=== PATIENT | male | born 1955 | race Hispanic/Latino ===

== ENCOUNTER 2023-10-22 11:34 | Inpatient (IN) | payer MEDICARE ==
[~2023-10-22] VITALS: Ht 165.1 cm; Wt 68.0 kg
[2023-10-22] VITALS (8 sets, daily range): BP systolic 126–148; BP diastolic 74–92; PULSE 57–72; RESP 11–18; TEMP 98; O2SAT 95–100
[2023-10-22] MEDS: ASPIRIN 325 MG TAB PO ONE (12:14)
[2023-10-22] MEDS ORDERED: ASPIRIN 81 MG CHEW TAB ONE (12:17)
[2023-10-22] MEDS: CLOPIDOGREL BISULFATE 75 MG TAB PO ONE (12:19)
[2023-10-22] MEDS: HEPARIN SOD (PORCINE) 5,000 UNIT/ML VIAL SC ONE (12:21)
[2023-10-22 12:22] LABS: BASOPHILS # (AUTO) 0.1 (0.0-0.1); BASOPHILS % 0.6 % (0.0-1.0); EOSINOPHILS # (AUTO) 0.1 (0.0-0.4); EOSINOPHILS % 0.3 % (0.0-6.0); HEMATOCRIT 49.5 % (38.2-49.6); LYMPHOCYTES # (AUTO) 1.5 (1.0-3.2); LYMPHOCYTES % 9.5 % (18.0-39.1); MEAN CORPUSCULAR HEMOGLOBIN 31.7 pg (28-32); MEAN CORPUSCULAR HGB CONC 32.3 g/dL (31-35); MONOCYTES # (AUTO) 0.8 (0.2-0.8); NEUTROPHILS # (AUTO) 13.1 (2.1-6.9); NEUTROPHILS % 84.2 % (38.7-80.0); PLATELET COUNT 247 x10e3/uL (140-360); RED BLOOD COUNT 5.05 x10e6/uL (4.3-5.7); RED CELL DISTRIBUTION WIDTH 14.4 % (11.7-14.4); WHITE BLOOD COUNT 15.55 x10e3/uL (4.8-10.8)
[2023-10-22] MEDS ORDERED: CLOPIDOGREL BISULFATE 75 MG TAB ONE (12:23)
[2023-10-22] MEDS ORDERED: LIDOCAINE HCL 2% LOCAL 20 ML VIAL ONE (12:24)
[2023-10-22] MEDS ORDERED: HEPARIN SOD (PORCINE) 1000 UNIT/ML 30ML ONE (12:24)
[2023-10-22] MEDS ORDERED: HEPARIN SOD/SOD CHLORIDE 2,000 ML ONE (12:25)
[2023-10-22] MEDS ORDERED: NITROGLYCERIN/D5W 200 MCG/ML 250 ML ONE (12:25)
[2023-10-22] MEDS ORDERED: SODIUM CHLORIDE 0.9% 1000ML 1,000 ML ONE (12:25)
[2023-10-22] MEDS ORDERED: IOPAMIDOL 370 MG/ML 100 ML INFUS..BTL INJ ONE ×2 (12:25→13:21)
[2023-10-22] MEDS ORDERED: SODIUM CHLORIDE 0.9% 1000ML 1,000 ML IV SCH (12:30)
[2023-10-22] MEDS ORDERED: MIDAZOLAM HCL 2 MG/2 ML VIAL ONE ×2 (12:33→12:54)
[2023-10-22] MEDS ORDERED: FENTANYL CITRATE/PF 100MCG/2 ML INJ ONE (12:33)
[2023-10-22 12:50] LABS: ALBUMIN 4.1 g/dL (3.5-5.0); ALBUMIN/GLOBULIN RATIO 1.1 (0.8-2.0); ANION GAP 13.8 mmol/L (8-16); BILIRUBIN,TOTAL 0.3 mg/dL (0.2-1.2); CALCIUM 9.4 mg/dL (8.4-10.2); CREATININE, SERUM 0.89 mg/dL (0.72-1.25); POTASSIUM 3.8 mmol/L (3.5-5.1); TOTAL PROTEIN 7.9 g/dL (6.5-8.1)
[2023-10-22] MEDS ORDERED: EPTIFIBATIDE 75mg 100ML 100 ML ONE (12:51)
[2023-10-22] MEDS ORDERED: EPTIFIBATIDE 10 ML ONE ×2 (12:51→12:54)
[2023-10-22 12:56] LABS: TROPONIN I 0.29 ng/mL (0-0.300)
[2023-10-22] MEDS ORDERED: ADENOSINE 6MG/2ML 1 ML ONE (13:23)
[2023-10-22] MEDS ORDERED: SODIUM CHLORIDE 0.9% 250ML 250 ML ONE (13:24)
[2023-10-22] MEDS ORDERED: HEPARIN SOD/SOD CHLORIDE 1,000 ML ONE (13:39)
== END 2023-10-22 14:20 | disposition other institution (70) | DRG 322 ==
LOC: ER 12:11 → CATH LAB 12:22 → ERHOLD 12:22 → UNDOADMIN 12:23 → ERHOLD 12:23 → ER 14:20 → CATH LAB V 14:20 → CATH LAB 14:20 → ERHOLD 10-23 11:37 → CATH LAB V 10-23 11:37 → UNDODISIN 10-23 14:00
PROVIDERS: ADMIT Internal Medicine; ATTEND Internal Medicine
PROC: 027035Z Dilation of Coronary Artery, One Artery with Two Drug-eluting Intraluminal Devices, Percutaneous Approach (ICD-10-PCS; principal; 2023-10-22)
PROC: 02C03ZZ Extirpation of Matter from Coronary Artery, One Artery, Percutaneous Approach (ICD-10-PCS; 2023-10-22)
PROC: 4A023N7 Measurement of Cardiac Sampling and Pressure, Left Heart, Percutaneous Approach (ICD-10-PCS; 2023-10-22)
PROC: B2111ZZ Fluoroscopy of Multiple Coronary Arteries using Low Osmolar Contrast (ICD-10-PCS; 2023-10-22)
DX: I21.3 ST elevation (STEMI) myocardial infarction of unspecified site (principal)
CPT/HCPCS: 33970; 36415; 80053; 82550; 84484; 85025; 92920; 92928; 92973; 93005; 93458; 99152; 99153; 99285; C1725; C1757; C1766; C1874; C1887; J0153; J1327; J1644; J2001; J2250; J7030; J7050; Q9967